=== PATIENT | female | born 1940 | race Caucasian/White ===

== ENCOUNTER 2018-01-23 13:20 | Outpatient (RCR) | payer MEDICARE, OTHER ==
[~2018-01-23 13:20] MED LIST: ATROVENT HFA12.9 GM; ATROVENT30 ML NEB; AZITHROMYCIN250 MG PO; CARAFATE1 GM/10 ML PO; DILTIAZEM HCL60 MG PO; NEXIUM20 MG PO; OMEPRAZOLE40 MG PO; PRESERVISION T1 EACH PO; XARELTO20 MG PO; XOPENEX0.63 MG/3 NEB; Z.0.BENICAR20 MG PO; Z.0.DILTIAZEM 24HR12 PO
== END 2018-01-24 ==
LOC: PT 13:20
PROVIDERS: ATTEND Otolaryngology
DX: H81.11 Benign paroxysmal vertigo, right ear (principal); R26.9 Unspecified abnormalities of gait and mobility
CPT/HCPCS: 97112 ×3; 97140; 97162; G8990; G8991

== ENCOUNTER 2018-01-28 13:41 | Outpatient (RCR) | payer MEDICARE, OTHER | END 2018-02-23 | LOC: PT 13:41 | PROVIDERS: ATTEND Otolaryngology | DX: H81.11 Benign paroxysmal vertigo, right ear (principal); R26.9 Unspecified abnormalities of gait and mobility | CPT/HCPCS: 97112; G8991; G8992 ==

== ENCOUNTER 2020-06-12 13:06 | Emergency (ER) | payer MEDICARE, OTHER ==
[~2020-06-12] VITALS: Ht 157.5 cm; Wt 79.4 kg
[2020-06-12] MEDS ORDERED: CLINDAMYCIN PHOS 900MG/ 50ML 50 ML IV SCH (14:00)
[2020-06-12 14:31] LABS: BASOPHILS # (AUTO) 0.1 (0.0-0.1); BASOPHILS % 1.1 % (0.0-1.0); EOSINOPHILS # (AUTO) 0.1 (0.0-0.4); EOSINOPHILS % 0.6 % (0.0-6.0); HEMATOCRIT 38.9 % (34.2-44.1); HEMOGLOBIN 12.7 g/dL (12.0-16.0); LYMPHOCYTES # (AUTO) 1.6 (1.0-3.2); LYMPHOCYTES % 19.6 % (18.0-39.1); MEAN CORPUSCULAR HEMOGLOBIN 30.2 pg (28-32); MEAN CORPUSCULAR HGB CONC 32.6 g/dL (31-35); MEAN CORPUSCULAR VOLUME 92.6 fL (81-99); MONOCYTES # (AUTO) 0.8 (0.2-0.8); MONOCYTES % 9.9 % (4.4-11.3); NEUTROPHILS # (AUTO) 5.4 (2.1-6.9); NEUTROPHILS % 68.5 % (38.7-80.0); PLATELET COUNT 277 x10e3/uL (140-360); RED CELL DISTRIBUTION WIDTH 13.2 % (11.7-14.4)
[2020-06-12 14:48] LABS: INR 1.04; PARTIAL THROMBOPLASTIN TIME 30.3 seconds (23.8-35.5); PROTHROMBIN TIME 14.3 seconds (11.9-14.5)
[2020-06-12 14:58] LABS: ALANINE AMINOTRANSFERASE 10 IU/L (0-55); ALBUMIN 3.2 g/dL (3.5-5.0); ALBUMIN/GLOBULIN RATIO 0.9 (0.8-2.0); ALKALINE PHOSPHATASE 79 IU/L (40-150); BLOOD UREA NITROGEN 12 mg/dL (7-26); BUN/CREATININE RATIO 18 (6-25); CARBON DIOXIDE 31 mmol/L (22-29); CHLORIDE 99 mmol/L (98-107); CREATINE KINASE 86 IU/L (29-168); CREATININE, SERUM 0.68 mg/dL (0.57-1.11); EST GLOMERULAR FILTRATION RATE > 60 ML/MIN (60-); GLUCOSE 81 mg/dL (74-118); SODIUM 141 mmol/L (136-145)
[2020-06-12] MEDS ORDERED: AZTREONAM 1 GM/NS 50 ML 50 ML IV SCH (15:00)
[2020-06-12 15:31] LABS: MAGNESIUM 0.9 MG/DL (1.3-2.1)
[2020-06-12] MEDS ORDERED: POTASSIUM CHLORIDE 20 MEQ TAB CR PO STA (15:33)
[2020-06-12] MEDS ORDERED: MAGNESIUM SULFATE 2GM/50ML 50 ML IV ONE (15:45)
== END 2020-06-12 16:55 | disposition home or self-care (01) ==
LOC: ER 14:01
DX: R04.2 Hemoptysis (principal); R91.8 Other nonspecific abnormal finding of lung field; J40 Bronchitis, not specified as acute or chronic; E83.42 Hypomagnesemia; E87.6 Hypokalemia; I10 Essential (primary) hypertension; Z11.52 Encounter for screening for COVID-19
CPT/HCPCS: 36415; 71045; 80053; 82550; 82553; 83735; 83880; 84484; 85025; 85610; 85730; 86850; 86900; 87040; 99283; J3475; U0002